=== PATIENT | male | born 1950 | race African-American/Black ===

== ENCOUNTER 2023-09-26 12:23 | Emergency (ER) | payer MEDICAID, MEDICARE, OTHER ==
[2023-09-26] MEDS ORDERED: hydrALAZINE 25 MG TAB ONE (13:46)
[2023-09-26 14:23] LABS: #Eosinphils 0.2 10x3/uL (0.0-0.5); #Monocytes 0.8 10x3/uL (0.0-1.1); #Neutrophils 2.7 10x3/uL (1.5-8.4); %Basophils 0.7 % (0.0-2.0); %Lymphocytes 13.9 % (18.0-47.0); %Neutrophils 61.9 % (40.0-75.0); Hematocrit 27.3 % (38.8-50.0); Hemoglobin 8.4 g/dL (13.5-17.5); Mean Corpuscular HGB CONC 30.8 g/dL (32.0-36.0); Mean Corpuscular Hemoglobin 30.7 pg (27.0-33.0); Mean Corpuscular Volume 99.6 fl (81.2-95.1); Mean Platelet Volume 10.3 fl (7.4-10.4); Platelet Count 151 10x3/uL (150-450); Red Blood Cell (RBC) Count 2.74 10x6/uL (4.32-5.72); White Blood Cell (WBC) Count 4.4 10x3/uL (3.5-10.5)
[2023-09-26 14:35] LABS: ALT (SGPT) 22 U/L (8-55); AST (SGOT) 23 U/L (5-34); Albumin 3.9 g/dL (3.4-4.8); Alkaline Phosphatase 60 U/L (40-110); Anion Gap 14 mmol/L (10-20); BUN (Urea Nitrogen) 46 mg/dL (8.4-25.7); Bilirubin, Total 0.7 mg/dL (0.2-1.2); Calc. Creatinine Clearance 0 mL/min (70-130); Calcium 8.4 mg/dL (7.8-10.44); Carbon Dioxide 31 mmol/L (23-31); Chloride 98 mmol/L (98-107); Estimated GFR 5; Globulin 2.2 g/dL (2.4-3.5); Glucose 92 mg/dL (83-110); Potassium 4.4 mmol/L (3.5-5.1); Protein, Total 6.1 g/dL (5.8-8.1); Sodium 139 mmol/L (136-145)
== END 2023-09-26 16:06 | disposition home or self-care (01) ==
LOC: CSHERS 12:23
DX: I12.9 Hypertensive chronic kidney disease with stage 1 through stage 4 chronic kidney disease, or unspecified chronic kidney disease (principal); N18.9 Chronic kidney disease, unspecified; R51.9 Headache, unspecified; R42 Dizziness and giddiness
CPT/HCPCS: 80053; 84484; 85025; 93005

== ENCOUNTER 2024-08-10 22:52 | Emergency (ER) | payer OTHER ==
[2024-08-11 00:26] LABS: #Basophils 0.03 10x3/uL (0.0-0.2); #Eosinophils 0.24 10x3/uL (0.0-0.5); #Neutrophils 4.23 10x3/uL (1.5-8.4); %Basophils 0.5 % (0.0-2.0); %Eosinophils 4.2 % (0.0-6.0); %Lymphocytes 11.4 % (18.0-47.0); %Monocytes 10.4 % (0.0-10.0); %Neutrophils 73.2 % (40.0-75.0); Hematocrit 33.9 % (38.8-50.0); Hemoglobin 10.8 g/dL (13.5-17.5); Mean Corpuscular HGB CONC 31.9 g/dL (32.0-36.0); Mean Corpuscular Volume 100.3 fL (81.2-95.1); Mean Platelet Volume 10.4 fL (7.4-10.4); Platelet Count 171 10x3/uL (150-450); RBC Distribution Width 14.2 % (11.5-14.5); Red Blood Cell (RBC) Count 3.38 10x6/uL (4.32-5.72); White Blood Cell (WBC) Count 5.8 10x3/uL (3.5-10.5)
[2024-08-11 00:27] LABS: ALT (SGPT) 38 U/L (8-55); AST (SGOT) 45 U/L (5-34); Alkaline Phosphatase 83 U/L (40-110); Anion Gap 22 mmol/L (10-20); BUN (Urea Nitrogen) 90 mg/dL (8.4-25.7); Bilirubin, Total 0.4 mg/dL (0.2-1.2); Calc. Creatinine Clearance 0 mL/min (70-130); Calcium 9.3 mg/dL (7.8-10.44); Carbon Dioxide 23 mmol/L (23-31); Chloride 103 mmol/L (98-107); Estimated GFR 3; Globulin 2.9 g/dL (2.4-3.5); Glucose 137 mg/dL (83-110); Protein, Total 6.9 g/dL (5.8-8.1); Sodium 142 mmol/L (136-145)
[2024-08-11] MEDS ORDERED: Insulin Regular, Human 100 UNIT/ML 10 ML VIAL ONE (00:45)
[2024-08-11] MEDS ORDERED: Dextrose 50% Abboject 50 ML SYRINGE ONE (00:45)
[2024-08-11] MEDS ORDERED: Sodium Bicarb 50 MEQ/50 ML Abboject 8.4% SYRINGE ONE (00:45)
[2024-08-11] MEDS ORDERED: Calcium Gluc 4.6 MEQ/10 ML (100 MG/ML) ONE (00:46)
[2024-08-11] MEDS ORDERED: Furosemide 40 MG TAB ONE (00:56)
[2024-08-11] MEDS ORDERED: Albuterol 2.5 MG (3 mL) NEB ONE (01:03)
[2024-08-11] MEDS ORDERED: LOKELMA 10 GM PACKET PO SCH (01:15)
[2024-08-11 20:55] LABS: Actual Bicarbonate (HCO3a) 22.8 mEq/L (22-28); Analyzer IN Cardio CS ER; Base Excess (BEa) -2.6 mEq/L (-2.0 to +3.0); CO2 Tension 41.4 mmHg (35.0-45.0); Calcium, Ionized (arterial) 1.13 mmol/L (1.12-1.30); Carboxyhemoglobin (COHb) 0.8 gm% (0.0-3.0); Hematocrit-ABG 34 % (42.0-52.0); Hemoglobin (Hb) 11.4 g/dL (14.0-18.0); O2 Tension (PaO2), arterial 75.2 mmHg (> 70.0); Potassium - ABG Lab 5.72 mmol/L (3.70-5.30); Puncture Site Other Site; RapidComm Collect By LAB; pH, Arterial 7.358 (7.35-7.45)
== END 2024-08-11 01:50 | disposition home or self-care (01) ==
LOC: CSHERS 22:52
DX: E87.5 Hyperkalemia (principal); K02.9 Dental caries, unspecified; I12.0 Hypertensive chronic kidney disease with stage 5 chronic kidney disease or end stage renal disease; N18.6 End stage renal disease; Z99.2 Dependence on renal dialysis; Z79.899 Other long term (current) drug therapy
CPT/HCPCS: 36415; 80053; 82805; 85025; 93005; 94640; J0612; J1815; J7611; J7999

== ENCOUNTER 2025-04-23 12:51 | Outpatient (CLI) | payer OTHER | END 2025-04-23 12:52 | disposition home or self-care (01) | LOC: CSHRAD 12:51 | PROVIDERS: ATTEND Physician Assistant | DX: J18.9 Pneumonia, unspecified organism (principal) | CPT/HCPCS: 71046 ==